=== PATIENT | female | born 1950 | race African-American/Black ===

== ENCOUNTER 2019-09-04 21:35 | Inpatient (IN) ==
[2019-09-04] MEDS ORDERED: ONDANSETRON 4 MG/2 ML VIAL ONE (22:09)
[2019-09-04] MEDS ORDERED: ACETAMINOPHEN 500 MG TABLET ONE (22:09)
[2019-09-04] MEDS ORDERED: dilTIAZem Drip 125 MG/125 ML PREMIX IV ONE (22:09)
[2019-09-04] MEDS ORDERED: DILTIAZEM 25 MG/5 ML VIAL IV ONE (22:09)
[2019-09-04] MEDS: dilTIAZem Drip 125 MG/125 ML PREMIX IV SCH (22:15)
[2019-09-04] MEDS ORDERED: SODIUM CHLORIDE 0.9% 500 ML IV STA (22:22)
[2019-09-04] MEDS ORDERED: AZITHROMYCIN 250 MG TABLET PO STA (22:22)
[2019-09-04] MEDS ORDERED: ONDANSETRON 4 MG/2 ML VIAL IV STA ×2 (22:22→22:38)
[2019-09-04] MEDS ORDERED: HYDROXYCHLOROQUINE 200 MG TABLET PO STA (22:32)
[2019-09-04 22:35] LABS: Basophils % 0.1 % (0.0-0.8); Eosinophils % 0.1 % (0.00-10.9); Hematocrit 33.1 VOL% (35.7-47.0); Hemoglobin 10.5 GM/DL (12.0-16.0); Immature Granulocytes % 1.2 %; Lymphocytes # 0.4 10*3/uL (1.4-4.0); Lymphocytes % 4.9 % (21.3-54.2); Mean Corpuscular HGB Conc 31.7 GM/DL (32-36); Mean Corpuscular Volume 95.4 FL (87-102); Mean Platelet Volume 10.8 FL (9.6-12.0); Monocytes % 3.8 % (1.7-12.7); Neutrophils % 89.9 % (38.7-73.9); Platelet Count 110 T/CUMM (130-400); Red Blood Count 3.47 MC/CUMM (3.8-5.5); Red Cell Distribution Width 12.2 % (9.3-17.3); White Blood Count 8.4 T/CUMM (4-12)
[2019-09-04] MEDS ORDERED: DILTIAZEM 50 MG/10 ML VIAL IV STA ×2 (22:38→22:39)
[2019-09-04] MEDS ORDERED: ACETAMINOPHEN 500 MG TABLET PO STA (22:38)
[2019-09-04 22:46] LABS: INR 1.5
[2019-09-04 22:51] LABS: Albumin 2.9 G/DL (3.4-5.0); Bilirubin,Total 0.8 MG/DL (0.2-1.0); Calcium 7.9 MG/DL (8.5-10.1); Osmolality,Calculated 263.8 MOS/KG (273-304); Total Protein 8.4 G/DL (6.4-8.3)
[2019-09-04] MEDS ORDERED: dilTIAZem Drip 125 MG/125 ML PREMIX IV SCH (23:00)
[2019-09-04 23:09] LABS: Band Neutrophils 1 % (0-10); Lymphocytes 2 % (20-55); Platelet Estimate Normal; Segmented Neutrophils 94 % (50-85); Total Cells Counted 100
[2019-09-04 23:11] LABS: Microcytosis Slight
[2019-09-04 23:12] LABS: Polychromasia Slight
[2019-09-04] MEDS ORDERED: MAGNESIUM SULF RIDER 2 GM in PREMIX 1 EACH IV STA (23:12)
[2019-09-04] MEDS ORDERED: NOREPINEPHRINE 4 MG/4 ML VIAL IV ONE (23:18)
[2019-09-04] MEDS ORDERED: NOREPINEPHRINE 8 MG in SODIUM CHLORIDE 0.9% 242 ML IV PRN (23:19)
[2019-09-04] MEDS ORDERED: POTASSIUM CHLORIDE 20 MEQ TABLET PO STA (23:20)
[2019-09-04] MEDS ORDERED: methylPREDNISolone SOD SUC 125 MG/2 ML VIAL IV STA (23:21)
[2019-09-04 23:22] LABS: Bacteria,Urine Many /HPF (Few); Bilirubin,Urine Negative (Negative); Blood, Urine Small mg/dL (Negative); Glucose,Urine (UA) 150 mg/dL (Negative); Ketones,Urine Negative (Negative); Nitrite,Urine Negative (Negative); Protein,Urine Negative; RBC,Urine 24 /HPF (0-4); Urine Color Colorless (Yellow); Urine Specific Gravity 1.005 (1.001-1.035); Urine Urobilinogen < 2.0 EU/DL (0.2-1.0); WBC,Urine 2022 /HPF (0-6)
[2019-09-04 23:26] LABS: Barbiturates Screen,Urine Negative (Negative); Benzodiazepines Screen,Urine Negative (Negative); Cannabinoid Screen,Urine Negative (Negative); Opiate Screen,Urine Negative (Negative); Phencyclidine Screen,Urine Negative (Negative)
[2019-09-04 23:41] LABS: Apearance,Urine Cloudy (Clear)
[2019-09-04 23:45] LABS: Ferritin 348.8 ng/ml (8-252)
[2019-09-05] MEDS ORDERED: ONDANSETRON 4 MG/2 ML VIAL IV PRN (00:17)
[2019-09-05] MEDS ORDERED: ENOXAPARIN 40 MG/0.4 ML SYRINGE SUBCUT SCH (00:30)
[2019-09-05] MEDS: cefTRIAXone 1,000 MG in SYRINGE 1 EACH IV SCH (01:45)
[2019-09-05] MEDS: SODIUM CHLORIDE 0.9% 1,000 ML IV SCH ×3 (01:45→14:55)
[2019-09-05 07:13] LABS: Basophils % 0.1 % (0.0-0.8); Hemoglobin 11.1 GM/DL (12.0-16.0); Immature Granulocytes % 1.1 %; Immature Granulocytes Absolute 0.15 #; Lymphocytes # 0.6 10*3/uL (1.4-4.0); Lymphocytes % 4.4 % (21.3-54.2); Mean Corpuscular HGB Conc 31.7 GM/DL (32-36); Mean Corpuscular Volume 95.9 FL (87-102); Mean Platelet Volume 10.6 FL (9.6-12.0); Monocytes % 3.6 % (1.7-12.7); Neutrophils % 90.8 % (38.7-73.9); Platelet Count 121 T/CUMM (130-400); Red Blood Count 3.65 MC/CUMM (3.8-5.5); Red Cell Distribution Width 12.4 % (9.3-17.3)
[2019-09-05] MEDS ORDERED: MAGNESIUM SULF RIDER 4 GM in PREMIX 1 EACH IV PRN (07:15)
[2019-09-05] MEDS ORDERED: MAGNESIUM SULF RIDER 2 GM in PREMIX 1 EACH IV PRN (07:15)
[2019-09-05] MEDS ORDERED: POTASSIUM CHLORIDE 20 MEQ TABLET PO PRN (07:17)
[2019-09-05 07:23] LABS: INR 1.5; PT Patient Result 15.6 SECS (9.8-11.9)
[2019-09-05 07:26] LABS: Albumin 2.8 G/DL (3.4-5.0); Bilirubin,Total 0.7 MG/DL (0.2-1.0); Osmolality,Calculated 276.1 MOS/KG (273-304); Total Protein 8.7 G/DL (6.4-8.3)
[2019-09-05 07:40] LABS: Band Neutrophils 7 % (0-10); Lymphocytes 3 % (20-55); Metamyelocytes 1 %; Nucleated Red Blood Cells 1 (0-5); Segmented Neutrophils 86 % (50-85); Total Cells Counted 100
[2019-09-05 07:41] LABS: Hypochromasia 1+; Macrocytosis Slight
[2019-09-05 07:42] LABS: Ovalocytes Slight; Platelet Estimate Adequate
[2019-09-05] MEDS: POTASSIUM CHLORIDE RIDER 10 MEQ in PREMIX 1 EACH IV PRN ×2 (08:03→09:16)
[2019-09-05] MEDS: PANTOPRAZOLE 40 MG TABLET PO SCH (08:35)
[2019-09-05] MEDS ORDERED: WARFARIN 5 MG TABLET PO SCH (10:00)
[2019-09-05] MEDS ORDERED: GLUCAGON 1 MG VIAL IM PRN (10:16)
[2019-09-05] MEDS ORDERED: DEXTROSE 10% 250 ML BAG IV PRN (10:18)
[2019-09-05] MEDS: ZINC SULFATE 220 MG CAPSULE PO SCH (11:53)
[2019-09-05] MEDS: HYDROXYCHLOROQUINE 200 MG TABLET PO SCH (11:54)
[2019-09-05] MEDS: INSULIN LISPRO 100 UNIT/ML SUBCUT SCH ×3 (12:14→20:30)
[2019-09-05] MEDS: AZITHROMYCIN 250 MG TABLET PO SCH (20:30)
[2019-09-06] MEDS: HYDROXYCHLOROQUINE 200 MG TABLET PO SCH ×3 (00:45→21:43)
[2019-09-06] MEDS: cefTRIAXone 1,000 MG in SYRINGE 1 EACH IV SCH (00:50)
[2019-09-06] MEDS: ACETAMINOPHEN 325 MG TABLET PO PRN ×2 (01:10→21:43)
[2019-09-06] MEDS: SODIUM CHLORIDE 0.9% 1,000 ML IV SCH ×3 (04:45→17:43)
[2019-09-06 05:25] LABS: Basophils % 0.1 % (0.0-0.8); Hematocrit 27.8 VOL% (35.7-47.0); Immature Granulocytes % 1.3 %; Immature Granulocytes Absolute 0.19 #; Lymphocytes # 0.6 10*3/uL (1.4-4.0); Lymphocytes % 3.9 % (21.3-54.2); Mean Corpuscular HGB Conc 32.4 GM/DL (32-36); Mean Corpuscular Volume 94.6 FL (87-102); Mean Platelet Volume 10.8 FL (9.6-12.0); Monocytes % 5.8 % (1.7-12.7); Neutrophils % 88.9 % (38.7-73.9); Platelet Count 123 T/CUMM (130-400); Red Blood Count 2.94 MC/CUMM (3.8-5.5); Red Cell Distribution Width 12.7 % (9.3-17.3); White Blood Count 15.1 T/CUMM (4-12)
[2019-09-06 05:55] LABS: Calcium 7.7 MG/DL (8.5-10.1)
[2019-09-06 06:49] LABS: Band Neutrophils 4 % (0-10); Lymphocytes 3 % (20-55); Segmented Neutrophils 89 % (50-85)
[2019-09-06 06:50] LABS: Platelet Estimate Adequate; Total Cells Counted 100
[2019-09-06] MEDS: dilTIAZem Drip 125 MG/125 ML PREMIX IV SCH ×2 (08:42→13:38)
[2019-09-06] MEDS ORDERED: WARFARIN 2.5 MG TABLET PO SCH (09:00)
[2019-09-06] MEDS: INSULIN LISPRO 100 UNIT/ML SUBCUT SCH ×4 (10:15→22:14)
[2019-09-06] MEDS: PANTOPRAZOLE 40 MG TABLET PO SCH (10:15)
[2019-09-06] MEDS: DILTIAZEM CD 120 MG CAPSULE PO SCH (10:15)
[2019-09-06 10:54] LABS: INR 3.2
[2019-09-06 10:55] LABS: PT Patient Result 32.4 SECS (9.8-11.9)
[2019-09-06] MEDS ORDERED: DILTIAZEM 50 MG/10 ML VIAL IV ONE (13:28)
[2019-09-06] MEDS ORDERED: DILTIAZEM 25 MG/5 ML VIAL IV ONE (13:32)
[2019-09-06] MEDS: AZITHROMYCIN 250 MG TABLET PO SCH (21:43)
[2019-09-07] MEDS: dilTIAZem Drip 125 MG/125 ML PREMIX IV SCH ×2 (00:29→13:35)
[2019-09-07] MEDS: cefTRIAXone 1,000 MG in SYRINGE 1 EACH IV SCH (00:46)
[2019-09-07 04:50] LABS: Basophils % 0.1 % (0.0-0.8); Hematocrit 26.7 VOL% (35.7-47.0); Hemoglobin 8.4 GM/DL (12.0-16.0); Immature Granulocytes % 0.7 %; Immature Granulocytes Absolute 0.08 #; Lymphocytes # 0.6 10*3/uL (1.4-4.0); Lymphocytes % 5.6 % (21.3-54.2); Mean Corpuscular HGB Conc 31.5 GM/DL (32-36); Mean Platelet Volume 10.8 FL (9.6-12.0); Monocytes % 7.1 % (1.7-12.7); Neutrophils % 86.5 % (38.7-73.9); Platelet Count 123 T/CUMM (130-400); Red Blood Count 2.84 MC/CUMM (3.8-5.5); White Blood Count 11.2 T/CUMM (4-12)
[2019-09-07 05:12] LABS: Calcium 7.3 MG/DL (8.5-10.1); Osmolality,Calculated 272.8 MOS/KG (273-304)
[2019-09-07 05:56] LABS: INR 4.4; PT Patient Result 43.8 SECS (9.8-11.9)
[2019-09-07] MEDS: SODIUM CHLORIDE 0.9% 1,000 ML IV SCH ×2 (07:34→20:41)
[2019-09-07] MEDS: PANTOPRAZOLE 40 MG TABLET PO SCH (09:08)
[2019-09-07] MEDS: HYDROXYCHLOROQUINE 200 MG TABLET PO SCH (09:08)
[2019-09-07] MEDS: DILTIAZEM CD 120 MG CAPSULE PO SCH (09:08)
[2019-09-07] MEDS: INSULIN LISPRO 100 UNIT/ML SUBCUT SCH ×3 (09:33→15:45)
[2019-09-07] MEDS: ZINC SULFATE 220 MG CAPSULE PO SCH (12:45)
[2019-09-07] MEDS: ASPIRIN EC 81 MG TABLET PO SCH (15:45)
[2019-09-07] MEDS: ACETAMINOPHEN 325 MG TABLET PO PRN (22:04)
[2019-09-07] MEDS: AZITHROMYCIN 250 MG TABLET PO SCH (22:04)
[2019-09-08] MEDS: cefTRIAXone 1,000 MG in SYRINGE 1 EACH IV SCH (00:50)
[2019-09-08] MEDS: INSULIN LISPRO 100 UNIT/ML SUBCUT SCH ×5 (02:14→21:50)
[2019-09-08] MEDS: dilTIAZem Drip 125 MG/125 ML PREMIX IV SCH (02:14)
[2019-09-08 05:32] LABS: Basophils % 0.1 % (0.0-0.8); Eosinophils # 0.2 10*3/uL (0.0-0.87); Hematocrit 27.5 VOL% (35.7-47.0); Hemoglobin 8.8 GM/DL (12.0-16.0); Immature Granulocytes % 0.9 %; Immature Granulocytes Absolute 0.07 #; Lymphocytes # 1.4 10*3/uL (1.4-4.0); Lymphocytes % 17.4 % (21.3-54.2); Mean Corpuscular Volume 94.5 FL (87-102); Neutrophils % 69.6 % (38.7-73.9); Platelet Count 128 T/CUMM (130-400); Red Blood Count 2.91 MC/CUMM (3.8-5.5); Red Cell Distribution Width 13.1 % (9.3-17.3)
[2019-09-08 05:46] LABS: Calcium 7.9 MG/DL (8.5-10.1); Osmolality,Calculated 272.7 MOS/KG (273-304)
[2019-09-08] MEDS: ASPIRIN EC 81 MG TABLET PO SCH (08:21)
[2019-09-08] MEDS: DILTIAZEM CD 120 MG CAPSULE PO SCH (08:21)
[2019-09-08] MEDS: PANTOPRAZOLE 40 MG TABLET PO SCH (08:22)
[2019-09-08] MEDS: ACETAMINOPHEN 325 MG TABLET PO PRN (08:22)
[2019-09-08] MEDS: SODIUM CHLORIDE 0.9% 1,000 ML IV SCH (09:35)
[2019-09-08] MEDS ORDERED: DILTIAZEM CD 120 MG CAPSULE PO ONE (09:54)
[2019-09-08] MEDS: METOPROLOL SUCCINATE XL 25 MG TABLET PO SCH (10:20)
[2019-09-08 14:15] LABS: INR 2.3
[2019-09-08 14:17] LABS: PT Patient Result 23.4 SECS (9.8-11.9)
[2019-09-08] MEDS: AZITHROMYCIN 250 MG TABLET PO SCH (21:50)
[2019-09-09] MEDS: cefTRIAXone 1,000 MG in SYRINGE 1 EACH IV SCH (05:40)
[2019-09-09 05:53] LABS: Basophils % 0.1 % (0.0-0.8); Eosinophils # 0.3 10*3/uL (0.0-0.87); Eosinophils % 3.3 % (0.00-10.9); Hematocrit 29.3 VOL% (35.7-47.0); Hemoglobin 9.5 GM/DL (12.0-16.0); Immature Granulocytes % 1.8 %; Immature Granulocytes Absolute 0.15 #; Lymphocytes # 1.4 10*3/uL (1.4-4.0); Lymphocytes % 16.5 % (21.3-54.2); Mean Corpuscular HGB Conc 32.4 GM/DL (32-36); Mean Corpuscular Volume 92.7 FL (87-102); Mean Platelet Volume 10.4 FL (9.6-12.0); Monocytes % 7.8 % (1.7-12.7); NRBC # 0.03 10*3/uL; Neutrophils % 70.5 % (38.7-73.9); Platelet Count 161 T/CUMM (130-400); Red Blood Count 3.16 MC/CUMM (3.8-5.5); Red Cell Distribution Width 12.9 % (9.3-17.3); White Blood Count 8.5 T/CUMM (4-12)
[2019-09-09 06:09] LABS: Calcium 8.9 MG/DL (8.5-10.1)
[2019-09-09] MEDS ORDERED: DILTIAZEM CD 120 MG CAPSULE PO SCH (09:00)
[2019-09-09] MEDS ORDERED: DILTIAZEM CD 240 MG CAPSULE PO SCH (09:00)
[2019-09-09] MEDS: METOPROLOL SUCCINATE XL 25 MG TABLET PO SCH (10:07)
[2019-09-09] MEDS: ACETAMINOPHEN 325 MG TABLET PO PRN (10:07)
[2019-09-09] MEDS: PANTOPRAZOLE 40 MG TABLET PO SCH (10:08)
[2019-09-09] MEDS: ASPIRIN EC 81 MG TABLET PO SCH (10:10)
[2019-09-09] MEDS: INSULIN LISPRO 100 UNIT/ML SUBCUT SCH ×2 (10:27→12:59)
[2019-09-09] MEDS: ZINC SULFATE 220 MG CAPSULE PO SCH (12:00)
[2019-09-09 12:57] VITALS: BP 130/83
[2019-09-09] MEDS ORDERED: HEPARIN LOCK FLUSH 500 UNIT/5 ML SYRINGE IV PRN (13:45)
== END 2019-09-09 15:35 | disposition home or self-care (01) | DRG 871 ==
LOC: EDUNIT# → EDBD → N.ED 21:35 → N.EDINP 09-05 00:17 → SUATTDRO 09-05 00:17 → N.ICU 09-05 00:48 → N.2E 09-08 14:15
PROVIDERS: ADMIT Internal Medicine; ATTEND Internal Medicine

== ENCOUNTER 2019-11-11 03:41 | Inpatient (IN) ==
[2019-11-11] MEDS ORDERED: SODIUM CHLORIDE 0.9% 1,000 ML IV STA (03:57)
[2019-11-11] MEDS ORDERED: ACETAMINOPHEN 500 MG TABLET PO STA (03:57)
[2019-11-11 04:50] LABS: Basophils % 0.1 % (0.0-0.8); Eosinophils % 0.4 % (0.00-10.9); Hematocrit 33.4 VOL% (35.7-47.0); Hemoglobin 10.6 GM/DL (12.0-16.0); Immature Granulocytes % 0.5 %; Immature Granulocytes Absolute 0.04 #; Lymphocytes # 0.8 10*3/uL (1.4-4.0); Lymphocytes % 9.3 % (21.3-54.2); Mean Corpuscular HGB Conc 31.7 GM/DL (32-36); Mean Corpuscular Volume 95.7 FL (87-102); Mean Platelet Volume 10.1 FL (9.6-12.0); Monocytes % 8.8 % (1.7-12.7); Neutrophils % 80.9 % (38.7-73.9); Platelet Count 125 T/CUMM (130-400); Red Blood Count 3.49 MC/CUMM (3.8-5.5); Red Cell Distribution Width 13.3 % (9.3-17.3); White Blood Count 8.1 T/CUMM (4-12)
[2019-11-11 04:54] LABS: PT Patient Result 20.2 SECS (9.8-11.9)
[2019-11-11 05:10] LABS: Hypochromasia 1+; Ovalocytes Slight
[2019-11-11 05:14] LABS: Albumin 3.1 G/DL (3.4-5.0); Bilirubin,Total 1.2 MG/DL (0.2-1.0); Calcium 8.2 MG/DL (8.5-10.1); Osmolality,Calculated 261.7 MOS/KG (273-304); Total Protein 8.1 G/DL (6.4-8.3)
[2019-11-11 05:16] LABS: Ferritin 236.9 ng/ml (8-252)
[2019-11-11 05:39] LABS: Apearance,Urine CLEAR (Clear); Bacteria,Urine Occasional /HPF (Few); Bilirubin,Urine Negative (Negative); Blood, Urine Negative (Negative); Glucose,Urine (UA) Negative (Negative); Ketones,Urine Negative (Negative); Mucus,Urine Occasional /LPF (Occasional); Nitrite,Urine Negative (Negative); Protein,Urine 30 MG/DL; RBC,Urine 4 /HPF (0-4); Squamous Epithelial Cell,Urine Occasional /HPF (0-10); Urine Color Yellow (Yellow); Urine Urobilinogen < 2.0 EU/DL (0.2-1.0); WBC,Urine 60 /HPF (0-6)
[2019-11-11] MEDS ORDERED: cefTRIAXone 1,000 MG in SODIUM CHLORIDE 0.9% 100 ML IV STA (05:52)
[2019-11-11] MEDS ORDERED: ACETAMINOPHEN 325 MG TABLET ONE (07:22)
[2019-11-11] MEDS: ACETAMINOPHEN 325 MG TABLET PO PRN ×2 (07:25→15:27)
[2019-11-11] MEDS ORDERED: MORPHINE 4 MG/1 ML VIAL IV PRN (07:26)
[2019-11-11] MEDS ORDERED: ONDANSETRON 4 MG/2 ML VIAL IV PRN (07:26)
[2019-11-11] MEDS ORDERED: DOCUSATE SODIUM 100 MG CAPSULE PO PRN (07:26)
[2019-11-11] MEDS ORDERED: AZITHROMYCIN 500 MG VIAL IV ONE (07:29)
[2019-11-11] MEDS ORDERED: AZITHROMYCIN INJ 500 MG in SODIUM CHLORIDE 0.9% 250 ML IV SCH (08:00)
[2019-11-11] MEDS: PANTOPRAZOLE 40 MG VIAL IV SCH ×2 (09:51→20:16)
[2019-11-11] MEDS ORDERED: IBUPROFEN 400 MG TABLET PO ONE (16:54)
[2019-11-12] MEDS: ACETAMINOPHEN 325 MG TABLET PO PRN ×2 (01:49→15:45)
[2019-11-12 06:16] LABS: Basophils % 0.2 % (0.0-0.8); Eosinophils # 0.1 10*3/uL (0.0-0.87); Eosinophils % 1.8 % (0.00-10.9); Hemoglobin 9.2 GM/DL (12.0-16.0); Immature Granulocytes % 0.9 %; Immature Granulocytes Absolute 0.05 #; Lymphocytes # 0.7 10*3/uL (1.4-4.0); Mean Corpuscular HGB Conc 31.7 GM/DL (32-36); Mean Corpuscular Volume 95.1 FL (87-102); Mean Platelet Volume 10.6 FL (9.6-12.0); Monocytes % 11.8 % (1.7-12.7); Neutrophils % 73.3 % (38.7-73.9); Platelet Count 117 T/CUMM (130-400); Red Blood Count 3.05 MC/CUMM (3.8-5.5); Red Cell Distribution Width 13.5 % (9.3-17.3); White Blood Count 5.7 T/CUMM (4-12)
[2019-11-12] MEDS: cefTRIAXone 1,000 MG in SYRINGE 1 EACH IV SCH (06:20)
[2019-11-12 06:34] LABS: Hypochromasia 1+; Microcytosis 1+; Platelet Estimate Decreased
[2019-11-12 06:36] LABS: Calcium 8.1 MG/DL (8.5-10.1); Osmolality,Calculated 267.1 MOS/KG (273-304)
[2019-11-12 06:41] LABS: INR 1.5; PT Patient Result 16.1 SECS (9.8-11.9); Partial Thromboplastin Time 41.1 SECS (23.9-33.8)
[2019-11-12] MEDS ORDERED: LACTATED RINGERS 1,000 ML IV SCH (08:00)
[2019-11-12] MEDS ORDERED: LIDOCAINE 2% 5 ML VIAL ONE (09:00)
[2019-11-12] MEDS ORDERED: propofoL 200 MG/20 ML VIAL IV ONE (09:00)
[2019-11-12] MEDS: PANTOPRAZOLE 40 MG VIAL IV SCH ×2 (09:38→21:15)
[2019-11-12] MEDS: POTASSIUM CHLORIDE 20 MEQ TABLET PO PRN ×2 (15:42→18:51)
[2019-11-12] MEDS: SIMVASTATIN 20 MG TABLET PO SCH (21:19)
[2019-11-13] MEDS: ACETAMINOPHEN 325 MG TABLET PO PRN (04:30)
[2019-11-13 05:19] LABS: Basophils % 0.2 % (0.0-0.8); Eosinophils # 0.2 10*3/uL (0.0-0.87); Eosinophils % 3.7 % (0.00-10.9); Hematocrit 30.5 VOL% (35.7-47.0); Hemoglobin 9.5 GM/DL (12.0-16.0); Immature Granulocytes % 0.2 %; Immature Granulocytes Absolute 0.01 #; Lymphocytes # 0.7 10*3/uL (1.4-4.0); Lymphocytes % 18.1 % (21.3-54.2); Mean Corpuscular HGB Conc 31.1 GM/DL (32-36); Mean Corpuscular Volume 97.1 FL (87-102); Mean Platelet Volume 10.3 FL (9.6-12.0); Monocytes % 12.7 % (1.7-12.7); Neutrophils % 65.1 % (38.7-73.9); Platelet Count 130 T/CUMM (130-400); Red Blood Count 3.14 MC/CUMM (3.8-5.5); Red Cell Distribution Width 13.6 % (9.3-17.3)
[2019-11-13 05:29] LABS: INR 1.4; PT Patient Result 14.5 SECS (9.8-11.9); Partial Thromboplastin Time 35.6 SECS (23.9-33.8)
[2019-11-13 05:46] LABS: Calcium 8.5 MG/DL (8.5-10.1); Osmolality,Calculated 261.5 MOS/KG (273-304)
[2019-11-13 05:57] LABS: Hypochromasia 1+
[2019-11-13 05:58] LABS: Microcytosis Slight; Ovalocytes Slight; Platelet Estimate Normal
[2019-11-13] MEDS ORDERED: AZITHROMYCIN 250 MG TABLET PO SCH (09:00)
[2019-11-13] MEDS ORDERED: AZITHROMYCIN INJ 500 MG in SODIUM CHLORIDE 0.9% 250 ML IV SCH (09:00)
[2019-11-13] MEDS: PANTOPRAZOLE 40 MG VIAL IV SCH ×2 (09:16→21:06)
[2019-11-13] MEDS: cefTRIAXone 1,000 MG in SYRINGE 1 EACH IV SCH (09:16)
[2019-11-13] MEDS: SACUBITRIL/VALSARTAN 49-51 MG TABLET PO SCH ×2 (09:17→21:05)
[2019-11-13] MEDS: AZITHROMYCIN 250 MG TABLET PO SCH (09:18)
[2019-11-13] MEDS: ASPIRIN EC 81 MG TABLET PO SCH (09:18)
[2019-11-13] MEDS: METOPROLOL SUCCINATE XL 100 MG TABLET PO SCH (09:18)
[2019-11-13] MEDS ORDERED: WARFARIN 2.5 MG TABLET PO SCH (21:00)
[2019-11-13] MEDS: SIMVASTATIN 20 MG TABLET PO SCH (21:05)
[2019-11-14 05:50] LABS: Basophils % 0.5 % (0.0-0.8); Eosinophils # 0.3 10*3/uL (0.0-0.87); Eosinophils % 7.6 % (0.00-10.9); Hematocrit 30.7 VOL% (35.7-47.0); Hemoglobin 9.8 GM/DL (12.0-16.0); Immature Granulocytes % 0.3 %; Immature Granulocytes Absolute 0.01 #; Lymphocytes # 0.9 10*3/uL (1.4-4.0); Lymphocytes % 24.3 % (21.3-54.2); Mean Corpuscular HGB Conc 31.9 GM/DL (32-36); Mean Corpuscular Volume 94.2 FL (87-102); Mean Platelet Volume 10.8 FL (9.6-12.0); Monocytes % 15.3 % (1.7-12.7); Platelet Count 160 T/CUMM (130-400); Red Blood Count 3.26 MC/CUMM (3.8-5.5); Red Cell Distribution Width 13.5 % (9.3-17.3); White Blood Count 3.7 T/CUMM (4-12)
[2019-11-14 05:55] LABS: INR 1.2; PT Patient Result 13.1 SECS (9.8-11.9)
[2019-11-14 05:59] LABS: Calcium 8.6 MG/DL (8.5-10.1); Osmolality,Calculated 260.5 MOS/KG (273-304)
[2019-11-14] MEDS: AZITHROMYCIN 250 MG TABLET PO SCH (09:30)
[2019-11-14] MEDS: ASPIRIN EC 81 MG TABLET PO SCH (09:30)
[2019-11-14] MEDS: ACETAMINOPHEN 325 MG TABLET PO PRN (09:30)
[2019-11-14] MEDS: SACUBITRIL/VALSARTAN 49-51 MG TABLET PO SCH (09:30)
[2019-11-14] MEDS: METOPROLOL SUCCINATE XL 100 MG TABLET PO SCH (09:30)
[2019-11-14] MEDS: cefTRIAXone 1,000 MG in SYRINGE 1 EACH IV SCH (09:33)
[2019-11-14] MEDS: PANTOPRAZOLE 40 MG VIAL IV SCH (09:33)
[2019-11-14 12:08] VITALS: BP 116/71
[2019-11-14] MEDS ORDERED: WARFARIN 5 MG TABLET PO SCH (21:00)
== END 2019-11-14 15:25 | disposition home or self-care (01) | DRG 871 ==
LOC: EDBD → EDUNIT# → N.ED 03:41 → N.EDINP 06:06 → SUATTDRO 06:06 → N.3E 13:15 → N.2E 11-12 01:25
PROVIDERS: ADMIT Internal Medicine; ATTEND Hospitalist